=== PATIENT | male | born 1995 | race Caucasian/White ===

== ENCOUNTER 2016-07-02 00:30 | Emergency (ER) | payer MEDICAID, OTHER ==
[2016-07-02] MEDS ORDERED: ZITHTAB PO (01:08)
== END 2016-07-02 02:35 | disposition home or self-care (01) ==
LOC: M ED 01:24
DX: J02.0 Streptococcal pharyngitis (principal)

== ENCOUNTER → 2020-02-07 | Outpatient (CLI) | payer SELFPAY ==
[~2020-02-07] MED LIST: ZITHTAB PO
== END ==
LOC: M LABSMTC 17:56
PROVIDERS: ATTEND Pediatrics
DX: Z11.59 Encounter for screening for other viral diseases (principal)